=== PATIENT | female | born 1955 | race Two or more races ===

== ENCOUNTER 2016-12-09 06:12 | Observation (INO) | payer MEDICAID ==
[2016-12-09] MEDS ORDERED: LIDOCAINE 1% 2 ML INJ ONE (08:03)
[2016-12-09] MEDS ORDERED: ceFAZolin 2 GM/DEXTROSE 100 ML IV ONE (08:09)
[2016-12-09] MEDS ORDERED: LR 1,000 ML IV ONE (08:17)
[2016-12-09] MEDS ORDERED: LIDOCAINE 1% 2 ML INJ ID PRN (08:17)
--- NOTE | 2016-12-09 08:17 | PDHPUP ---
History & Physical Update H&P update statement: This history and physical update is based on an assessment of the patient which was completed after admission or registration (within 24 hours), but prior to the surgery/procedure.
[2016-12-09] MEDS ORDERED: MIDAZOLAM 2 MG/2 ML VIAL ONE (08:19)
[2016-12-09] MEDS ORDERED: REMIFENTANIL HCL 1 MG VIAL ONE ×2 (08:23)
[2016-12-09] MEDS ORDERED: fentaNYL 100 MCG/2 ML INJ ONE ×2 (08:23→13:55)
[2016-12-09] MEDS ORDERED: ROCURONIUM 50 MG/5 ML VIAL ONE (08:23)
[2016-12-09] MEDS ORDERED: PROPOFOL/EMULSION 500 MG/50 ML BOTTLE IV ONE (08:23)
[2016-12-09] MEDS ORDERED: PROPOFOL 200 MG/20 ML VIAL ONE (08:23)
[2016-12-09] MEDS ORDERED: MIDAZOLAM 2 MG/2 ML VIAL IVP ONE (08:26)
--- NOTE | 2016-12-09 08:26 | PDANEPAE ---
ANE History of Present Illness Patient presents for surgery ANE Past Medical History - Cardiovascular History Hx Hypertension: No Hx Arrhythmias: No Hx Chest Pain: No Hx Coronary Artery / Peripheral Vascular Disease: No Hx CHF / Valvular Disease: No Hx Palpitations: No - Pulmonary History Hx COPD: No Hx Asthma/Reactive Airway Disease: No Hx Recent Upper Respiratory Infection: No Hx Oxygen in Use at Home: No Hx Sleep Apnea: No Sleep Apnea Screening Result - Last Documented: Negative - Neurologic History Hx Cerebrovascular Accident: No Hx Seizures: No Hx Dementia: No - Endocrine History Hx Diabetes: No Endocrine History Comment: HYPOTHYROID - Renal History Hx Renal Disorders: No - Liver History Hx Hepatic Disorders: No - Neurological & Psychiatric Hx Hx Neurological and Psychiatric Disorders: No - Cancer History Hx Cancer: No - Congenital Disorder History Hx Congenital Disorders: No - GI History Hx Gastrointestinal Disorders: No - Chronic Pain History Chronic Pain: Yes (LT SIDE OF JAW) - Surgical History Prior Surgeries: LUIS/APPY ANE Review of Systems - Exercise capacity Exercise capacity: >=4 METS METS (RN): 4 METS ANE Patient History - Allergies Allergies/Adverse Reactions: bee venom protein (honey bee) Allergy (Severe, Verified 12/09/16 08:04) Anaphylaxis codeine Allergy (Intermediate, Verified 12/09/16 08:04) - Home Medications Home medications: home medication list seen and reviewed Home Medications: Cholecalciferol Vit D3 [Vitamin D3 (*)] 1,000 units PO DAILY 12/05/16 [Last Taken 12/08/16 0800] Levothyroxine [Synthroid 25 mcg (*)] 25 mcg PO DAILY06 12/05/16 [Last Taken 12/18 0430] - NPO status NPO Status: no food or drink >8 hours NPO Since - Liquids (Date): 12/09/16 NPO Since - Liquids (Time): 04:30 NPO Since - Solids (Date): 12/08/16 NPO Since - Solids (Time): 20:10 - Anes Hx Anes Hx: no prior problems - Smoking Hx Smoking Status: Former smoker ANE Labs/Vital Signs - Vital Signs Blood Pressure: 117/82 Heart Rate: 69 Respiratory Rate: 16 O2 Sat (%): 95 Height: 154.94 cm Weight: 75.75 kg ANE Physical Exam - Airway Mallampati Score: Class 2 Mouth exam: normal dental/mouth exam - Pulmonary Pulmonary: no respiratory distress - Cardiovascular Cardiovascular: regular rate and rhythym - ASA Status ASA Status: II ANE Anesthesia Plan Anesthesia Plan: general endotracheal anesthesia (RBA discussed.)
[2016-12-09] MEDS ORDERED: DEXAMETHASONE 4 MG/ML VIAL ONE ×2 (08:32→09:16)
[2016-12-09] MEDS ORDERED: ONDANSETRON 4 MG/2 ML VIAL ONE (08:33)
[2016-12-09] MEDS ORDERED: LIDOCAINE 2% 5 ML SDV ONE (08:43)
[2016-12-09] MEDS ORDERED: epHEDrine SULFATE 10 MG/ML SYR ONE (08:47)
[2016-12-09] MEDS ORDERED: PHENYLEPHRINE HCL 100 MCG/ML SYR ONE (09:00)
[2016-12-09] MEDS ORDERED: HYDROmorphONE/DILAUDID 2 MG/ML INJ ONE (09:16)
[2016-12-09] MEDS ORDERED: HYDROmorphONE/DILAUDID 1 MG/ML SYR IVP PRN ×2 (11:14→12:47)
[2016-12-09] MEDS ORDERED: HYDROCODONE/APAP 5/325 TAB PO PRN ×3 (11:14→13:14)
[2016-12-09] MEDS ORDERED: ONDANSETRON 4 MG/2 ML VIAL IVP PRN ×2 (11:14→12:47)
[2016-12-09] MEDS ORDERED: LR 500 ML IV PRN ×2 (11:14→12:47)
[2016-12-09] MEDS ORDERED: NALOXONE HCL 0.4 MG/ML INJ IVP PRN ×2 (11:14→12:47)
[2016-12-09] MEDS ORDERED: OXYCODONE/APAP 5/325 TAB PO PRN ×2 (11:14→12:47)
[2016-12-09] MEDS ORDERED: BACITRACIN ZINC 14.2 GM OINTTUBE TP ONE (11:40)
[2016-12-09] MEDS ORDERED: ceFAZolin 1 GM VIAL ONE (12:04)
[2016-12-09] MEDS ORDERED: SUGAMMADEX SODIUM 200 MG/2 ML VIAL IVP ONE (12:22)
[2016-12-09] MEDS ORDERED: fentaNYL 100 MCG/2 ML INJ IVP PRN (12:47)
--- NOTE | 2016-12-09 13:20 | POSTOPPROG ---
Post Op Note Date of Operation: 12/09/16 Surgeon: Estephanie Zhang Detective Captain: buck Anesthesia: GET(General Endotracheal) Pre-op Diagnosis: left parotid mass Post-op Diagnosis: same Procedure: left superficial parotidectomy Inf/Abcess present in the surg proc area at time of surgery?: No EBL: 50-100 Drains: Saleem Adrian
[2016-12-09] MEDS: fentaNYL 100 MCG/2 ML INJ IVP PRN ×2 (13:56→14:25)
--- NOTE | 2016-12-09 14:27 | POSTANESTH ---
Post Anesthetic Evaluation Cardiovascular Status: Normal, Stable Respiratory Status: Normal, Stable Level of Consciousness/Mental Status: Mildly Sleepy, Arousable Pain Control: Adequate, Prn Tx Ordered Nausea/Vomiting Control: Adequate, Prn Tx Ordered Complications Possibly Related to Anesthesia: None Noted
[2016-12-09] MEDS: D5W 1/2 NS W/ 20 KCl/L 1,000 ML IV SCH (15:21)
[2016-12-09] MEDS: ceFAZolin 2 GM/DEXTROSE 100 ML IV SCH ×2 (16:52→21:05)
[2016-12-09] MEDS: ONDANSETRON 4 MG/2 ML VIAL IVP PRN ×2 (18:13→21:39)
--- NOTE | 2016-12-09 19:23 | GOP ---
[f rep st] OPERATIVE REPORT DATE OF OPERATION: 12/09/2016 SURGEON: Estephanie Zhang MD ORTHOPEDIC BRACE MAKER: Cecilia Jackson MD. ANESTHESIA: General endotracheal anesthesia. PREOPERATIVE DIAGNOSIS: Left parotid mass. POSTOPERATIVE DIAGNOSIS: Left parotid mass. PROCEDURE PERFORMED: Left superficial parotidectomy with preservation of the facial nerve with faci al nerve monitoring. FINDINGS: ESTIMATED BLOOD LOSS: 50 cc. INDICATIONS: This is a 61-year-old female with a several-year history of an enlarging left facial m ass. 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 After discussion of options wit h the patient, she elected for surgical correction. DESCRIPTION OF PROCEDURE: After informed consent, patient brought back to the operating room, place d in supine position, and general endotracheal anesthesia obtained. Table was rotated 90 degrees. The facial nerve monitor was set up, and a modified Chris incision was planned on the left side, inj ected with 10 cc of epinephrine at 1:100,000. The patient was then prepped and draped in a sterile fashion. A 15 blade was used to make a skin incision. The skin incision was taken down to the paro tid fascia in the face and down to the SCM fascia in the neck. The plane was raised between the sub cutaneous tissue and the parotid fascia using a 15 blade in the face overlying the mass and in the n joe. The Bovie was then used to isolate the SCM and the anterior border of the SCM. The great ashley cular nerve was found running right through the pleomorphic adenoma. Therefore, it was transected a nd not traced and preserved. Once the flap was raised, dissection along the tragus was performed us ing blunt dissection and bipolar until the facial nerve was then identified at the stylomastoid groo ve. The facial nerve was identified and confirmed with the facial nerve monitor. It was then trace d to the pes. The inferior branch was then followed to the margin. The additional branches were al l identified and followed all the way up towards the masseter. The tumor was found to be spanning b oth the lower and superior branches of the facial nerve. Therefore, once all the lower branches wer e identified, the tissue at the pes was also identified using a combination of the Harmonic scalpel and the bipolar. The tissue was continually transected once visualization of the nerve was performe d. The upper branch was then also identified starting with the lower branches up to the superior br anches until all the branches of the facial nerve had been identified and the tumor was then able to be continually freed off the nerve using the Harmonic scalpel and the bipolar. At this point, I wa s able to get all around the tumor in addition to a large cuff of parotid tissue, and it was able to be removed completely. Any bleeding was controlled using the bipolar. The nerve was exposed. A s mall amount of remaining parotid tissue was tacked back to the SCM. The nerve monitor was then used to confirm that both upper and lower branches were intact, and a #7 flat MARIA DEL CARMEN drain was placed. The skin was then closed using 4-0 Vicryl and Dermabond. At this point, the patient was awoken from ane sthesia, extubated, and transferred to PACU in stable condition. The facial nerve was confirmed to be intact when the patient was awake. COMPLICATIONS: None. /[id number]/MODL
[2016-12-10] MEDS: D5W 1/2 NS W/ 20 KCl/L 1,000 ML IV SCH (02:56)
[2016-12-10 07:39] VITALS: BP 99/62; PULSE 76; RESP 14; TEMP 98.2; O2SAT 96
[2016-12-10] MEDS ORDERED: LEVOTHYROXINE 25 MCG TAB PO SCH (08:15)
--- NOTE | 2016-12-10 08:15 | GDS ---
[f rep st] DISCHARGE SUMMARY ADMITTING DIAGNOSIS: Left parotid mass. HOSPITAL COURSE: This is a 61-year-old female, admitted on 12/09/2016 for a left superficial paroti dectomy. Patient underwent surgery without complications, and was admitted to the floor postop for observation with a MARIA DEL CARMEN drain in place. She remained afebrile throughout her hospital course. She to lerated p.o. MARIA DEL CARMEN with a total of 40 cc out. On postop day 1, patient was seen. Facial nerve comple tely intact. She is awake and alert. The incision was intact without evidence of hematoma. At thi s point, the MARIA DEL CARMEN drain was removed. There was some bleeding from the site immediately after MARIA DEL CARMEN drain removal, but after a few minutes, this completely resolved, even without pressure. The area was ob served for additional 10 minutes without hematoma formation. Therefore, just a dressing was applied . The patient was then discharged home in stable condition on a regular diet, with limited activity with no strenuous activity or heavy lifting. She is to resume her home medications and has Vicodin and Tylenol p.r.n. pain. The patient should follow up with me in 1 week for postop check. /[id number]/MODL
[2016-12-10] MEDS ORDERED: CHOLECALCIFEROL VIT D3 1,000 UNITS TAB PO SCH (09:00)
== END 2016-12-10 10:05 | disposition home or self-care (01) ==
LOC: F3E 06:12
PROVIDERS: ADMIT Otolaryngology; ATTEND Otolaryngology
PROC: 0CB90ZZ Excision of Left Parotid Gland, Open Approach (ICD-10-PCS; principal; 2016-12-09 08:30)
DX: D11.0 Benign neoplasm of parotid gland (principal); E03.9 Hypothyroidism, unspecified; Z87.891 Personal history of nicotine dependence
CPT/HCPCS: 42410; G0378; J0171; J0690; J1100; J1170; J2250; J2370; J2405; J2704; J3010